=== PATIENT | female | born 1990 | race Caucasian/White ===

== ENCOUNTER → 2022-10-01 | Outpatient (CLI) | payer OTHER ==
[~2022-10-01] MED LIST: CODACE30 PO; CRUTCH3 USE; CYCL10 PO; DAYQUIL; DIPH50 PO; HYDACE5 PO; LORA10ER PO; NAPR500 PO; RANI150 PO; RXCODACET PO; SULTRIDS PO
[2022-10-01 20:42] LABS: Protein, Urine Quantitative 19.3 mg/dL (0.0-11.9)
== END | disposition home or self-care (01) ==
LOC: LAB SHORT 08:00 → LAB 08:00
PROVIDERS: Obstetrics & Gynecology
DX: O09.891 Supervision of other high risk pregnancies, first trimester (principal)
CPT/HCPCS: 81050; 84156

== ENCOUNTER → 2022-11-20 | Outpatient (CLI) | payer OTHER | END | disposition home or self-care (01) | LOC: LAB 15:51 → LAB SHORT 15:51 | DX: O09.891 Supervision of other high risk pregnancies, first trimester (principal); Z3A.00 Weeks of gestation of pregnancy not specified | CPT/HCPCS: 87081; 87150 ==

== ENCOUNTER 2022-11-29 08:56 | Inpatient (IN) | payer OTHER ==
[~2022-11-29] VITALS: Ht 167.6 cm; Wt 120.0 kg
[2022-11-29] VITALS (25 sets, daily range): BP systolic 112–149; BP diastolic 52–93
[2022-11-29] MEDS ORDERED: PRENATAL TABLE1 EAC2 PO (09:12)
[2022-11-29] MEDS ORDERED: ASPI81CH PO (09:13)
[2022-11-29] MEDS ORDERED: DOCU100 PO (09:13)
[2022-11-29 09:29] LABS: BASOPHILS ABSOLUTE AUTO 0.07 K/mm3 (0.00-0.23); BASOPHILS PERCENT AUTO 1 % (0-2); EOSINOPHILS ABSOLUTE AUTO 0.29 K/mm3 (0.00-0.68); EOSINOPHILS PERCENT AUTO 2 % (0-6); Hematocrit 32.3 % (33.0-51.0); Hemoglobin 11.1 g/dL (11.5-16.0); IMMATURE GRAN ABSOLUTE AUTO 0.21 K/mm3 (0.00-0.10); IMMATURE GRAN PERCENT AUTO 1 % (0-1); LYMPHOCYTES ABSOLUTE AUTO 2.62 K/mm3 (0.84-5.20); LYMPHOCYTES PERCENT AUTO 17 % (21-46); MONOCYTES ABSOLUTE AUTO 0.93 K/mm3 (0.16-1.47); MONOCYTES PERCENT AUTO 6 % (4-13); Mean Corpuscular HGB 29.5 pg (26.0-34.0); Mean Corpuscular HGB Conc 34.4 g/dL (31.5-36.5); Mean Corpuscular Volume 86 fL (80-100); NEUTROPHILS PERCENT AUTO 73 % (41-73); Platelet Count 165 K/mm3 (150-400); RDW Coefficient Variation 14.2 % (11.7-14.2); RDW Standard Deviation 43.6 fL (35.1-46.3); Red Blood Cell Count 3.76 M/mm3 (3.80-5.20); White Blood Cell Count 15.22 K/mm3 (4.00-11.30)
--- NOTE | 2022-11-29 11:51 | NUR ---
11/29/22 1151 Susana Rajan [facility]INS PRIMARY CS BABY A-BOY 1124 BABY B-GIRL 1127
--- NOTE | 2022-11-29 16:29 | NUR ---
ASSSUMED CARE. SITTING UP VISITING WITH FAMILY. NO COMPLAINTS AND FEELING WELL.
--- NOTE | 2022-11-29 17:25 | NUR ---
HOSPITAL BREAST PUMP GIVEN PATIENT HAS ALREADY GOTTEN INSURANCE PAID BREASTPUMP - IT IS NOT HERE AT THIS TIME PER PT. TWIN DELIVERY 1 TWIN IN SCN - OPEN PUMP KIT SHOWED PATIENT AND FAMILY PUMP FOR USE AND INSTRUCTIONS ON CLEANING SUPPLIES - PT EATING DINNER TO CALL RN TO ROOM FOR 1ST USE FOR ASSISTANCE; PT VERBALIZED UNDERSTANDING - INSTRUCTED TO PUMP EVERY 3 HOURS TO NOTIFY RN WHEN DONE FOR EBM TO BE COLLECTED AND TAKEN TO NURSERY FOR PROPER STORAGE; PT AND FAMILY VERBALIZED UNDERSTANDING DENIED QUESTIONS. LC RN WILL BE HERE FRIDAY IF STILL PATIENT AND WILL ROUND AT THAT TIME
[2022-11-30 05:02] VITALS: BP 136/75
[2022-11-30 07:02] LABS: BASOPHILS ABSOLUTE AUTO 0.05 K/mm3 (0.00-0.23); BASOPHILS PERCENT AUTO 0 % (0-2); EOSINOPHILS ABSOLUTE AUTO 0.13 K/mm3 (0.00-0.68); EOSINOPHILS PERCENT AUTO 1 % (0-6); Hematocrit 25.5 % (33.0-51.0); Hemoglobin 8.6 g/dL (11.5-16.0); IMMATURE GRAN ABSOLUTE AUTO 0.22 K/mm3 (0.00-0.10); IMMATURE GRAN PERCENT AUTO 1 % (0-1); LYMPHOCYTES ABSOLUTE AUTO 2.53 K/mm3 (0.84-5.20); LYMPHOCYTES PERCENT AUTO 15 % (21-46); MONOCYTES ABSOLUTE AUTO 0.68 K/mm3 (0.16-1.47); MONOCYTES PERCENT AUTO 4 % (4-13); Mean Corpuscular HGB 29.9 pg (26.0-34.0); Mean Corpuscular HGB Conc 33.7 g/dL (31.5-36.5); Mean Corpuscular Volume 89 fL (80-100); Mean Platelet Volume 11.9 fL (9.1-12.4); NEUTROPHILS ABSOLUTE AUTO 13.76 K/mm3 (1.96-9.15); NEUTROPHILS PERCENT AUTO 79 % (41-73); Platelet Count 151 K/mm3 (150-400); RDW Coefficient Variation 14.4 % (11.7-14.2); RDW Standard Deviation 46.2 fL (35.1-46.3); Red Blood Cell Count 2.88 M/mm3 (3.80-5.20); White Blood Cell Count 17.37 K/mm3 (4.00-11.30)
[2022-11-30 07:42] VITALS: BP 125/72
--- NOTE | 2022-11-30 08:39 | NUR ---
0715 ASSUMED CARE OF PATIENT RESTING IN BED WITH BABY IN ARMS. REPORTS BURNING NEAR INCISION SITE. ABDOMINAL DRESSING REMOVED. INCISION CLEAN DRY AND INTACT. OOB WITH ASSIST FROM RN AND TO VOID. TOLERATED WELL
--- NOTE | 2022-11-30 09:20 | NUR ---
0920 PLANNING TO NAP UNTIL VISITORS ARRIVE.
[2022-11-30 12:40] VITALS: BP 134/78
--- NOTE | 2022-11-30 12:58 | NUR ---
1245 OOB TO BATHROOM REPORTS LESS DIZZY BUT CHEST IS "TIGHT" PLAN IS FOR PATIENT TO WALK IN [place] AFTER NEXT PAIN MEDS
[2022-11-30 15:25] VITALS: BP 135/74
--- NOTE | 2022-11-30 16:06 | NUR ---
1500 ambulated in [facility] to nurses station and back, tolerated well
[2022-11-30 20:07] VITALS: BP 141/67
[2022-11-30 23:17] VITALS: BP 133/67
[2022-12-01] VITALS (7 sets, daily range): BP systolic 130–144; BP diastolic 61–95
--- NOTE | 2022-12-01 05:22 | NUR ---
RN HAS BEEN PUTTING SIDERAILS DOWN WHEN ROUNDING AND EDUCATING PATIENT THAT SIDERAILS NEED TO REMAIN IN DOWN POSITION. PATIENT PUTS BOTH SIDERAILS BACK UP AFTER RN LEAVES BECAUSE SHE "FEELS SAFER WITH THEM UP." PATIENT AND SPOUSE EDUCATED THAT BOTH SIDERAILS UP IS CONSIDERED A RESTRAINT AND NOT ALLOWED. PATIENT CONTINUES TO PUT SIDERAILS UP WHEN UNATTENDED.
[2022-12-01 05:57] LABS: BASOPHILS ABSOLUTE AUTO 0.06 K/mm3 (0.00-0.23); BASOPHILS PERCENT AUTO 0 % (0-2); EOSINOPHILS ABSOLUTE AUTO 0.25 K/mm3 (0.00-0.68); EOSINOPHILS PERCENT AUTO 1 % (0-6); Hematocrit 23.8 % (33.0-51.0); IMMATURE GRAN ABSOLUTE AUTO 0.77 K/mm3 (0.00-0.10); IMMATURE GRAN PERCENT AUTO 4 % (0-1); LYMPHOCYTES ABSOLUTE AUTO 2.65 K/mm3 (0.84-5.20); LYMPHOCYTES PERCENT AUTO 15 % (21-46); MONOCYTES ABSOLUTE AUTO 0.79 K/mm3 (0.16-1.47); MONOCYTES PERCENT AUTO 5 % (4-13); Mean Corpuscular HGB Conc 33.6 g/dL (31.5-36.5); Mean Corpuscular Volume 89 fL (80-100); Mean Platelet Volume 11.7 fL (9.1-12.4); NEUTROPHILS ABSOLUTE AUTO 12.96 K/mm3 (1.96-9.15); NEUTROPHILS PERCENT AUTO 74 % (41-73); NRBC ABSOLUTE 0.03 K/mm3 (0.00-0.02); NRBC Auto 0.2 /100 WBC (0.0-0.2); Platelet Count 151 K/mm3 (150-400); RDW Coefficient Variation 14.6 % (11.7-14.2); RDW Standard Deviation 46.6 fL (35.1-46.3); Red Blood Cell Count 2.67 M/mm3 (3.80-5.20); White Blood Cell Count 17.48 K/mm3 (4.00-11.30)
[2022-12-01] MEDS ORDERED: IBUP800 PO (14:03)
[2022-12-01] MEDS ORDERED: OXAYDO5 M1 PO (14:04)
[2022-12-01] MEDS ORDERED: ACET500 PO (14:04)
--- NOTE | 2022-12-01 14:51 | NUR ---
PATIENT DISCHARGE EDUCATION REVIEWED WITH THE PATIENT AND SPOUSE AT BEDSIDE. RN ADVISED THE IMPORTANCE TO MONITOR FOR S/S OF INFECTION, INCISION CARE, SYS OF BLOOD CLOTS, HEADACHE/VISION CHANGES, BLEEDING, CHEST PAIN, SOB, DEPRESSION/BABY BLUES. PATIENT VERBALIZED UNDERSTANDING, DENIED ANY FURTHER QUESTIONS OR CONCERNS AT THIS TIME. IV D/C WNL. DISCHARGE VITALS WNL. PATIENT DISCHARGED WITH AND [place] AT HER SIDE.
== END 2022-12-01 15:40 | disposition home or self-care (01) | DRG 788 ==
LOC: BC 08:56
PROVIDERS: Advanced Practice Midwife; Obstetrics & Gynecology; ADMIT Obstetrics & Gynecology
PROC: 10D00Z1 Extraction of Products of Conception, Low, Open Approach (ICD-10-PCS; principal; 2022-11-29 10:30)
DX: O10.92 Unspecified pre-existing hypertension complicating childbirth (principal); O30.049 Twin pregnancy, dichorionic/diamniotic, unspecified trimester; O13.4 Gestational [pregnancy-induced] hypertension without significant proteinuria, complicating childbirth; O99.419 Diseases of the circulatory system complicating pregnancy, unspecified trimester; Z3A.37 37 weeks gestation of pregnancy; O30.043 Twin pregnancy, dichorionic/diamniotic, third trimester; O99.02 Anemia complicating childbirth; D64.9 Anemia, unspecified; O99.214 Obesity complicating childbirth; Z31.41 Encounter for fertility testing; Z37.2 Twins, both liveborn; Z90.49 Acquired absence of other specified parts of digestive tract
CPT/HCPCS: 36415; 85025; 86850; 86900; 86901; 86923; 88307; A9270; J0690; J1885; J2371; J2590; J2765; J2916; J3010; J7120